=== PATIENT | male | born 1955 | race Caucasian/White ===

== ENCOUNTER 2020-11-20 18:08 | Emergency (ER) | payer OTHER, SELFPAY ==
[2020-11-20 18:09] VITALS: BP 149/76; PULSE 69; RESP 15; TEMP 36.6; O2SAT 98; BMI 47.4
--- NOTE | 2020-11-20 18:16 | EKG12_ITS ---
Test Reason : DYSRYTHMIA Blood Pressure : / mmHG Vent. Rate : 065 BPM Atrial Rate : 065 BPM P-R Int : 204 ms QRS Dur : 110 ms QT Int : 432 ms P-R-T Axes : 020 010 042 degrees QTc Int : 449 ms Normal sinus rhythm Normal ECG Confirmed by FAVIOLA ALMANZA, SATNAM ([id number]), news video editor RICKY DORADO ([id number]) on 11/22/2020 11:35:51 AM Referred By: MARIA EUGENIA Confirmed By:SATNAM SALMERON MD
--- NOTE | 2020-11-20 18:31 | ED.VIS.GEN ---
History of Present Illness Chief Complaint: Edema Informant: Patient Onset: Days Maximum Severity: Mild Narrative: The patient presents complaining of left lower extremity redness and edema that he first noticed today it may been present the day before but he was at work today and it was much more bothersome he looked down there was a red area involving his lower tib-fib region left, he had no fever no cough no trauma no history of cellulitis or DVT history peripheral vascular disease he is a large gentleman he states his legs are always edematous that is not new or different he has had no fever or cough he had coronavirus in June his health is otherwise been stable Past Medical History - Allergies and Home Meds Allergies/Adverse Reactions: Allergies No Known Allergies Allergy (Verified 11/20/20 18:09) Primary Care Physician: Jefe Donnelly MD [Primary Care Provider] - Past Medical History: - Smoking Status: Never smoker Review of Systems ROS: - Includes as above negative General: Denies: Chills, Fever, Sweats Eyes: Denies: Visual changes - bilaterally, Diplopia ENT: Denies: Rhinorrhea, Sore throat Cardiovascular: Denies: Chest pain, Palpitations Respiratory: Denies: Dyspnea, Cough, Dyspnea on exertion Gastrointestinal: Denies: Abdominal pain, Nausea, Vomiting, Diarrhea, Melena, Hematochezia Genitourinary: Denies: Dysuria, Hematuria, Frequency Musculoskeletal: Reports: Swelling, Extremity Pain. Denies: Back pain Skin: Denies: Rash, Wounds Neurological: Denies: Headache, Weakness, Numbness Physical Exam Vital Signs/Narrative: Vital Signs Temp Pulse Resp BP Pulse Ox 11/20/20 18:09 97.9 F 69 15 149/76 H 98 General: Well nourished, Well developed, No Acute Distress Head: Normocephalic, Atraumatic Eyes: Perrl, EOMI ENT: Moist mucous membranes, No rhinorrhea Neck: Supple, Nontender Cardiovascular: Regular rate, Regular rhythm, No murmurs Respiratory: No distress, CTA bilaterally, Chest nontender Abdomen: Soft, Nontender, Nondistended, Normal bowel sounds Back: Nontender, Normal Inspection Extremities: No edema, - - Left lower leg distally he has a circular area of redness it is more prominently red over the more medial side there is no fluctuance or crepitance, there is no lymphangitic streaking, the foot has good pulses normal dorsi and plantar flexion normal movement of the knee and the hip he has 3+ edema t Skin: Normal color, Rash Neurological: Alert, Oriented x3, Cranial nerves II-XII grossly intact, Normal Strength, Normal Sensation Psychological: Normal affect, Normal Mood Diagnostic/Tx/Re-eval - Medical Decision Making Given all the above differentials extensive includes cellulitis DVT ED evaluation screening labs duplex scan EKG shows sinus rhythm rate 65 no acute injury, ED screening evaluation labs are generally unremarkable white count 11.5, duplex scan of lower legs shows no DVT, chest x-ray 1 view to my review shows nothing acute gated radiology generally concur see those reports, Discussed with the patient he has been treated IV antibiotics given all of the above his symptoms are really consistent with cellulitis be started on Augmentin follow-up outpatient providers tomorrow [facility] [place] as rescue medicine we discussed inpatient versus outpatient management he feels well he wants to go home he will return for change in symptoms does not wish to be admitted Home stable Final impression left lower extremity cellulitis ED Disposition - Plan for ED Patient: Diagnosis: Left leg cellulitis Prescriptions: Amox/Clavulanate Tablet [Augmentin Tablet] 875 mg PO Q12H #20 tab Prescription Printed Naproxen [Naprosyn] 500 mg PO BID PRN #20 tablet Prescription Printed Hydrocodone Bitart/Apap 5-325 [[place] 5MG-325MG] 1 tablet PO Q4H PRN PRN 2 Days #10 tab PRN Reason: Pain Prescription Printed Referrals: Jefe Donnelly MD [Primary Care Provider] -
--- NOTE | 2020-11-20 18:34 | RAD_ITS ---
STUDY: X-RAY CHEST REASON FOR EXAM: Male, 64 years old. Chest pain. TECHNIQUE: Single AP portable view of the chest. COMPARISON: None. FINDINGS: The lungs are clear and expanded. There is no demonstrated pleural abnormality. There is borderline cardiomegaly. Normal mediastinum and oliver. Normal visualized pulmonary arteries. Normal visualized aortic arch and descending thoracic aorta. The thoracic spine is obscured by the mediastinum. Normal visualized ribs, clavicles, and shoulders. There is no demonstrated abnormality of the visualized soft tissue structures of the upper abdomen. RAD/Chest 1 View (Portable) IMPRESSION: Borderline cardiomegaly without acute pulmonary disease. Electronically Signed: César Garcia DO at 19:06 EDT Tel [phone], Service support ,
[2020-11-20 18:36] LABS: Basophil# 0.03 X10^3/uL; Basophil% 0.3 % (0-1); Eosinophil# 0.06 X10^3/uL; Eosinophils% 0.5 % (0-5); Hematocrit 37.9 % (40-54); Hemoglobin 13.1 g/dL (13.0-16.5); Lymphocyte % 12.9 % (19-41); Mean Corp Hgb Conc 34.6 g/dL (32-36); Mean Corpuscular Hgb 29.8 pg (27.0-32.0); Mean Corpuscular Volume 86.3 fL (80-94); Mean Platelet Vol. 10.1 fl (6.2-12.0); Monocyte# 1.02 X10^3/uL; Monocyte% 8.8 % (0-10); NRBC Flagged by Analyzer 0 % (0-5); Neutrophil # 8.98 X10^3/uL (2.7-7.7); Neutrophil % 77.2 % (47-70); Platelet Count 245 K/mm3 (150-450); RBC Distribution Width CV 13.1 % (11.6-14.6); RBC Distribution Width SD 40.4 fl (35.1-43.9); Red Blood Count 4.39 M/mm3 (4.6-6.2); White Blood Count 11.6 K/mm3 (4.4-11.0)
[2020-11-20 18:52] LABS: BNP,B-Type NATRIURETIC PEPTIDE 46.4 pg/mL (0-100)
[2020-11-20 18:55] LABS: Anion Gap 5 (5-15); BUN 11 mg/dL (7-18); BUN/Creat Ratio 12.3 RATIO (10-20); Chloride 102 mmol/L (98-107); Creatinine, Serum 0.89 mg/dL (0.70-1.30); EST Glomerular Filtration Rate 91 mL/min (>60); Est Glom Filt Rate - Afr Amer 111 mL/min (>60); Estimated Creatinine Clearance 102.86 ml/min; Glucose 110 mg/dL (74-106); Potassium 2.9 mmol/L (3.5-5.1); Sodium Level 137 mmol/L (136-145)
[2020-11-20 19:22] VITALS: BP 150/70; PULSE 66; RESP 18; TEMP 36.9; O2SAT 94
--- NOTE | 2020-11-20 19:49 | US_ITS ---
STUDY: VENOUS DOPPLER ULTRASOUND - BILATERAL LOWER EXTREMITIES REASON FOR EXAM: Male, 64 years old. SWELLING CELLULITIS LOWER MEDIAL LT CALF TECHNIQUE: Ultrasound evaluation of the deep vein system to include macedo-scale imaging and compression was performed. Macedo-scale imaging and Doppler sonographic evaluation, including duplex spectral analysis and qualitative color flow sonography, was performed. COMPARISON: None. FINDINGS: RIGHT LEG Common Femoral Vein: Normal compression, spontaneity and augmentation. Normal color Doppler. Common Femoral Vein/Greater Saphenous Junction: Normal compression, spontaneity and augmentation. Normal color Doppler. Deep Femoral Vein: Normal compression, spontaneity and augmentation. Normal color Doppler. Femoral Proximal: Normal compression, spontaneity and augmentation. Normal color Doppler. Femoral Middle: Normal compression, spontaneity and augmentation. Normal color Doppler. Femoral Distal: Normal compression, spontaneity and augmentation. Normal color Doppler. Popliteal Vein: Normal compression, spontaneity and augmentation. Normal color Doppler. Posterior Tibial Vein: Normal compression, spontaneity and augmentation. Normal color Doppler. Peroneal Vein: Normal compression, spontaneity and augmentation. Normal color Doppler. LEFT LEG Common Femoral Vein: Normal compression, spontaneity and augmentation. Normal color Doppler. Common Femoral Vein/Greater Saphenous Junction: Normal compression, spontaneity and augmentation. Normal color Doppler. Deep Femoral Vein: Normal compression, spontaneity and augmentation. Normal color Doppler. Femoral Proximal: Normal compression, spontaneity and augmentation. Normal color Doppler. Femoral Middle: Normal compression, spontaneity and augmentation. Normal color Doppler. Femoral Distal: Normal compression, spontaneity and augmentation. Normal color Doppler. Popliteal Vein: Normal compression, spontaneity and augmentation. Normal color Doppler. Posterior Tibial Vein: Normal compression, spontaneity and augmentation. Normal color Doppler. Peroneal Vein: Normal compression, spontaneity and augmentation. Normal color Doppler. US/Venous Duplex Imag/Marcellus Extrem IMPRESSION: Normal venous Doppler ultrasound of the bilateral lower extremities. Electronically Signed: Isaiah Vega MD at 20:43 EDT , Service support ,
[2020-11-20 21:57] VITALS: BP 139/68; PULSE 70; RESP 19; O2SAT 97
[2020-11-20] MEDS: Amox/Clavulanate 875 MG Tablet PO (21:59)
== END 2020-11-20 22:09 | disposition home or self-care (01) ==
PROVIDERS: Emergency Provider Emergency Medicine; PCP Family Medicine
DX: L03.116 Cellulitis of left lower limb (principal); Z86.16 Personal history of COVID-19
CPT/HCPCS: 71045; 80048; 83880; 84484; 85025; 93005; 93970; 96365; 96367; 99285; J7040; J7050; A4216

== ENCOUNTER 2023-04-13 05:17 | Day surgery (SDC) | payer BC, SELFPAY ==
--- NOTE | 2023-04-13 | COLBX_PTH ---
PATIENT: ANALIA WHITNEY LOC: EN U#:[id number] AGE/SX: 67/M ROOM: RE04/13/[address]: Dr. Jefe Pang MD : 1955 BED: DIS: 04/13/2023 SPEC #: [id number] RECD: 04/13/23 11:45 STATUS: SETH PARKER #: [id number] FELIPE: 04/13/23 00:[address]: Jefe Pang DEPT: SURGICAL PATHOLOGY RECD BY: Ciro Lo ENTERED: 04/13/23 11:46 SP TYPE: COLON BX OTHR DR: Dr. Jefe Donnelly MD Tissues: A - Cecum, NOS B - Ascending colon C - Gastric mucous membrane D - Transverse colon E - Rectum, NOS Procedures: Surgery Specimen Level IV HEADER OPERATION: Colonoscopy PRE-OP DIAGNOSIS: History of colonic polyps TISSUE SUBMITTED: A - Cecum polyp, B - Ascending colon, C - Hepatic flexure, D - Mid transverse, E - Rectum MICROSCOPIC DIAGNOSIS A. Cecum polyp, biopsy: Fragments of tubular adenoma. B. Ascending colon polyp, biopsy: Fragments of tubular adenoma. C. Hepatic flexure polyp, biopsy: Tubular adenoma. D. Mid transverse colon polyp, biopsy: Fragments of tubular adenoma. E. Rectum polyp, biopsy: Fragments of hyperplastic polyp. SJ:timbo 04/14/2023 MICROSCOPIC DESCRIPTION Slides are reviewed. GROSS DESCRIPTION A - Received in fixative is one container labeled with the patient's name and designated cecum polyps. The specimen consists of multiple irregular fragments of light smith soft tissue that in aggregate measure 1.5 x 0.3 x 0.1 cm. The specimen is totally submitted in one cassette. B - Received in fixative is one container labeled with the patient's name and designated ascending colon. The specimen consists of multiple irregular fragments of light smith soft tissue that in aggregate measure 1.0 x 0.3 x 0.1 cm. The specimen is totally submitted in one cassette. C - Received in fixative is one container labeled with the patient's name and designated hepatic flexure. The specimen consists of a smith-pink polyp measuring 0.6 x 0.5 x 0.2 cm. A few fragments of fecal material are also noted. The specimen is totally submitted in one cassette. D - Received in fixative is one container labeled with the patient's name and designated mid transverse. The specimen consists of multiple irregular fragments of light smith soft tissue that in aggregate measure 1.5 x 0.5 x 0.1 cm. The specimen is totally submitted in one cassette. E - Received in fixative is one container labeled with the patient's name and designated rectum. The specimen consists of two irregular fragments of light smith soft tissue that in aggregate measure 0.4 x 0.3 x 0.1 cm. The specimen is totally submitted in one cassette. / SJ:rg 04/13/2023 TC:1 CPT: 07636 x5
[2023-04-13] MEDS: Lactated Ringers 1,000 ML 15 ML IV (05:45)
[2023-04-13 05:55] VITALS: BP 142/67; PULSE 68; RESP 18; TEMP 36.7; O2SAT 100; BMI 38.7
--- NOTE | 2023-04-13 05:57 | PCM.HP.BLA ---
History and Physical Date of Admission: 04/13/23 Visit Reasons: SELF REFERRED COLONOSCOPY Chief Complaint: colonoscopy Is patient in pain?: No Allergies No Known Allergies Allergy (Verified 03/15/23 09:07) Medications amlodipine 10 mg tablet 10 mg PO DAILY 03/15/23 [History Confirmed 03/15/23] atorvastatin 20 mg tablet 20 mg PO DAILY 03/15/23 [History Confirmed 03/15/23] biotin 10,000 mcg capsule mcg PO DAILY 03/15/23 [History Confirmed 03/15/23] cholecalciferol (vitamin D3) 50 mcg (2,000 unit) capsule 50 mcg PO DAILY 03/15/23 [History Confirmed 03/15/23] fluticasone furoate 50 mcg/actuation blister powder for inhalation 2 inh inhalation DAILY 03/15/23 [History Confirmed 03/15/23] glucosamine [id number]-I7-[id number] jessica 1,500 mg-400 unit-100 mg tablet (Osteo Bi-Flex (5-Loxin)) 1 tab PO DAILY 03/15/23 [History Confirmed 03/15/23] hydrochlorothiazide 25 mg tablet 25 mg PO DAILY 03/15/23 [History Confirmed 03/15/23] labetalol 200 mg tablet 200 mg PO BID 03/15/23 [History Confirmed 03/15/23] lisinopril 40 mg tablet 40 mg PO DAILY 03/15/23 [History Confirmed 03/15/23] loratadine 10 mg tablet 10 mg PO DAILY 03/15/23 [History Confirmed 03/15/23] meloxicam 15 mg tablet 15 mg PO DAILY 03/15/23 [History Confirmed 03/15/23] metformin 1,000 mg tablet 1,000 mg PO DAILY 03/15/23 [History Confirmed 03/15/23] multivitamin 1 tab PO DAILY 03/15/23 [History Confirmed 03/15/23] potassium chloride 10 mEq capsule,extended release 10 meq PO DAILY 03/15/23 [History Confirmed 03/15/23] tumeric 100 mg-alyson 150 mg-olive 50 mg-oreg 150 mg-caprylate capsule cap PO DAILY 03/15/23 [History Confirmed 03/15/23] PFSH Social History Smoking Status: Never smoker HPI HPI HPI: 67-year-old male self-referred for a colonoscopy. We reference a previous colonoscopy June 2013 that I have assisted the patient with at the [facility]. There were no acute findings at that time. Follow-up colonoscopy at 5 years recommended. The patient has a personal history of colon polyps. He is a type II diabetic. Recently he has had blood pressure problems under control with his morning glucose today being 303. He is scheduled to see an collar fuser in [facility] March 31, 2023. He thinks he may need to go on insulin therapy. He denies any bright red blood per rectum or melena. No abdominal pain. He denies chest pain or shortness of breath ROS General General: Yes weight change and fatigue; No appetite, colon cancer, breast cancer or weakness HEENT HEENT: No difficulty swallowing, eye injury, eye surgery, swollen glands or hoarseness Endo Endocrine: Yes diabetes mellitus; No thyroid disease, thyroid cancer, Hair loss, heat intolerance or cold intolerance Skin Skin: No rash or changing moles Musc Musculoskeletal: Yes back problems and arthritis; No rheumatoid arthritis, gout or joint pain Cardio Cardiovascular: Yes high blood pressure; No murmur, pacemaker, heart disease, atrial fibrillation, heart attack, heart stent, palpitations, shortness of breat with exertion or chest pain Psych Psychiatric: No depression, anxiety or hearing voices Resp Respiratory: No shortness of breath, Yes sleep apnea, No cough, No COPD, No asthma, No emphysema and No wheezing Gastro Gastrointestinal: No abdominal pain, No nausea or vomiting, No diarrhea, Yes constipation, No blood in stool, No acid reflux, No hemorrhoids, No ulcers, No gallbladder problem and No black,tarry stools Axel Hematologic: No blood thinners, No blood disorders, No bleeding, No anemia and No blood clots Neuro Neurologic: No system reviewed and no additional complaints, except as documented, No as per HPI, No abnormal gait, No abnormal hearing, No abnormal movements, No abnormal speech, No behavioral changes, No burning sensations, No confusion, No convulsions, No disequilibrium, No dizziness, No localized weakness, No frequent falls, No headache(s), No lack of coordination, No loss of vision, No memory loss, Yes numbness, No other visual disturbances, No radicular pain, No restless legs, No sensory deficit, No syncope, Yes tingling, No tremor(s), No weakness and No other Exam Const General: cooperative, comfortable and no acute distress Nutritional Appearance: obese HENMT Head: normal to inspection Eyes General: appearance normal, both eyes and all related structures Neck Neck: normal visual inspection Resp Effort & Inspection: normal respiratory effort Auscultation: clear to auscultation bilaterally Cardio Rate: regular rate Rhythm: regular rhythm GI Palpation: soft and no hepatosplenomegaly Skin General: no rashes or lesions noted Neuro General: patient alert, patient awake and patient oriented x3 Extrem General: no calf tenderness Other: Nonpitting bilateral extremity edema, support hose in place Psych Appearance: grossly normal Assessment and Plan Assessment and Plan (1) Personal history of colonic polyps: Status: Acute Plan: 67-year-old gentleman with personal history of colon polyps. Type 2 diabetes mellitus with glucose [id number] to be seen by endocrinology. I propose for the patient a colonoscopy with possible biopsy or polypectomy is indicated. He is aware the technique, benefit, risk, alternatives. He had an opportunity ask and have questions answered. We will schedule proceed as indicated. I will utilize an adult scope and monitored anesthesia care. Copy: Dr. Jefe Pang M.D., F.A.C.S I have examined the patient and the H&P has been reviewed. There are no clinical changes since date of exam. Jefe Pang M.D., F.A.C.S.
[2023-04-13 06:21] LABS: Bedside Glucose 99 mg/dL (74-106)
--- NOTE | 2023-04-13 06:56 | OP.COLON_ITS ---
Patient Name: Aquiles Pitts Procedure Date: 04/13/2023 7:06 AM Date of : 1955 Age: 67 Procedure: Colonoscopy Indications: Screening for colorectal malignant neoplasm Providers: Jefe Pang MD Referring MD: Jefe Donnelly Medicines: See the Anesthesia note for documentation of the administered medications Patient Profile: Last Colonoscopy: June 2013. Complications: No immediate complications. Procedure: Pre-Anesthesia Assessment: - Prior to the procedure, a History and Physical was performed, and patient medications and allergies were reviewed. The patient's tolerance of previous anesthesia was also reviewed. The risks and benefits of the procedure and the sedation options and risks were discussed with the patient. All questions were answered, and informed consent was obtained. Prior Anticoagulants: The patient has taken no anticoagulant or antiplatelet agents. ASA Grade Assessment: II - A patient with mild systemic disease. After reviewing the risks and benefits, the patient was deemed in satisfactory condition to undergo the procedure. After I obtained informed consent, the scope was passed under direct vision. Throughout the procedure, the patient's blood pressure, pulse, and oxygen saturations were monitored continuously. The adult colonoscope was introduced through the anus and advanced to the cecum, identified by appendiceal orifice and ileocecal valve. The colonoscopy was performed with moderate difficulty due to the patient's body habitus. The patient tolerated the procedure well. The quality of the bowel preparation was fair. The ileocecal valve and the appendiceal orifice were photographed. Scope In: 7:08:58 AM Scope Withdrawal Time 0 hours 25 minutes 22 seconds Scope Out: 7:42:39 AM Total Procedure Duration Time 0 hours 33 minutes 41 seconds Findings: The digital rectal exam findings include non-thrombosed external hemorrhoids, non-thrombosed internal hemorrhoids, internal hemorrhoids that prolapse with straining, but spontaneously regress to the resting position (Grade II) and enlarged prostate. An 8 mm polyp was found in the cecum. The polyp was sessile. The polyp was removed with a cold snare. Resection and retrieval were complete. To prevent bleeding post-intervention, one hemostatic clip was successfully placed. There was no bleeding at the end of the procedure. A 6 mm polyp was found in the mid ascending colon. The polyp was sessile. The polyp was removed with a cold snare. Resection and retrieval were complete. A 6 mm polyp was found in the hepatic flexure. The polyp was sessile. The polyp was removed with a cold biopsy forceps. Resection and retrieval were complete. An 8 mm polyp was found in the mid transverse colon. The polyp was sessile. The polyp was removed with a hot snare. Resection and retrieval were complete. A 5 mm polyp was found in the rectum. The polyp was sessile. The polyp was removed with a cold biopsy forceps. Resection and retrieval were complete. Impression: - Preparation of the colon was fair. - Non-thrombosed external hemorrhoids, non-thrombosed internal hemorrhoids, internal hemorrhoids that prolapse with straining, but spontaneously regress to the resting position (Grade II) and enlarged prostate found on digital rectal exam. - One 8 mm polyp in the cecum, removed with a cold snare. Resected and retrieved. Clip was placed. - One 6 mm polyp in the mid ascending colon, removed with a cold snare. Resected and retrieved. - One 6 mm polyp at the hepatic flexure, removed with a cold biopsy forceps. Resected and retrieved. - One 8 mm polyp in the mid transverse colon, removed with a hot snare. Resected and retrieved. - One 5 mm polyp in the rectum, removed with a cold biopsy forceps. Resected and retrieved. Recommendation: - Telephone my office for pathology results in 1 week. - Repeat colonoscopy in 3 years for surveillance based on pathology results. - Continue present medications. Procedure Code(s): --- Professional --- 51235, Colonoscopy, flexible; with removal of tumor(s), polyp(s), or other lesion(s) by snare technique 49296, 59, Colonoscopy, flexible; with biopsy, single or multiple Diagnosis Code(s): --- Professional --- Z12.11, Encounter for screening for malignant neoplasm of colon K64.1, Second degree hemorrhoids K64.4, Residual hemorrhoidal skin tags D12.0, Benign neoplasm of cecum D12.2, Benign neoplasm of ascending colon D12.3, Benign neoplasm of transverse colon (hepatic flexure or splenic flexure) D12.8, Benign neoplasm of rectum N40.0, Benign prostatic hyperplasia without lower urinary tract symptoms CPT copyright 2021 [employer]. All rights reserved. The codes documented in this report are preliminary and upon ladder operator review may be revised to meet current compliance requirements. Jefe Pang MD 04/13/2023 7:50:05 AM This report has been signed electronically. Number of Addenda: 0 Note Initiated On: 04/13/2023 7:06 AM
--- NOTE | 2023-04-13 06:56 | OP.CCLET_ITS ---
04/13/2023 Jefe Donnelly [address] [place] [address] Re : Colonoscopy procedure for [facility] Dear Dr. Donnelly This procedure was performed on Thursday, April 13, 2023. My impressions and recommendations are as follows: Impressions : - Preparation of the colon was fair. - Non-thrombosed external hemorrhoids, non-thrombosed internal hemorrhoids, internal hemorrhoids that prolapse with straining, but spontaneously regress to the resting position (Grade II) and enlarged prostate found on digital rectal exam. - One 8 mm polyp in the cecum, removed with a cold snare. Resected and retrieved. Clip was placed. - One 6 mm polyp in the mid ascending colon, removed with a cold snare. Resected and retrieved. - One 6 mm polyp at the hepatic flexure, removed with a cold biopsy forceps. Resected and retrieved. - One 8 mm polyp in the mid transverse colon, removed with a hot snare. Resected and retrieved. - One 5 mm polyp in the rectum, removed with a cold biopsy forceps. Resected and retrieved. Recommendations : - Telephone my office for pathology results in 1 week. - Repeat colonoscopy in 3 years for surveillance based on pathology results. - Continue present medications. My findings are described in the full procedure note, which is enclosed. If I can be of further assistance, please feel free to contact me at Doctor phone number(s): Work: . Sincerely, Jefe Pang MD 04/13/2023 7:50:05 AM This report has been signed electronically.
[2023-04-13 07:50] VITALS: BP 111/72; BP 142/67; PULSE 65; RESP 16; TEMP 36.4; O2SAT 99
[2023-04-13 07:55] VITALS: BP 126/72; BP 142/67; PULSE 58; RESP 16; O2SAT 97
[2023-04-13 08:00] VITALS: BP 128/99; BP 142/67; PULSE 58; RESP 16; O2SAT 98
[2023-04-13 08:05] VITALS: BP 139/76; BP 142/67; PULSE 57; RESP 16; TEMP 36.2; O2SAT 97
[2023-04-13 08:17] VITALS: BP 142/67
== END 2023-04-13 08:23 | disposition home or self-care (01) ==
LOC: EN 05:17 → AC 05:19
PROVIDERS: PCP Family Medicine; Referring Provider Family Medicine; Visit Provider Surgery
PROC: 0DJD8ZZ Inspection of Lower Intestinal Tract, Via Natural or Artificial Opening Endoscopic (ICD-10-PCS; CPT 45378; principal; 2023-04-13 06:25)
DX: Z12.11 Encounter for screening for malignant neoplasm of colon (principal); E11.65 Type 2 diabetes mellitus with hyperglycemia; D12.0 Benign neoplasm of cecum; D12.2 Benign neoplasm of ascending colon; D12.3 Benign neoplasm of transverse colon; D12.8 Benign neoplasm of rectum; K64.1 Second degree hemorrhoids; K64.4 Residual hemorrhoidal skin tags; N40.0 Benign prostatic hyperplasia without lower urinary tract symptoms; I10 Essential (primary) hypertension; E78.00 Pure hypercholesterolemia, unspecified; E66.9 Obesity, unspecified; Z68.38 Body mass index [BMI] 38.0-38.9, adult; Z90.49 Acquired absence of other specified parts of digestive tract; Z79.84 Long term (current) use of oral hypoglycemic drugs; Z79.899 Other long term (current) drug therapy; Z86.010 Personal history of colon polyps
CPT/HCPCS: 45385; 45380; 82962; 88305; J7120; J2405